=== PATIENT | female | born 1985 | race Caucasian/White ===

== ENCOUNTER → 2016-10-12 | Outpatient (CLI) | payer OTHER ==
[~2016-10-12] MED LIST: PROTONIX40 MG PO; VOLTAREN EC 7575 MG PO; ZANTAC150 MG PO
== END ==
DX: M25.511 Pain in right shoulder (principal); S16.1XXA Strain of muscle, fascia and tendon at neck level, initial encounter
CPT/HCPCS: 72050; 73030

== ENCOUNTER 2016-11-22 16:48 | Emergency (ER) | payer BC | END 2016-11-22 18:34 | disposition home or self-care (01) | LOC: ER1 16:48 | DX: J02.0 Streptococcal pharyngitis (principal); K21.9 Gastro-esophageal reflux disease without esophagitis; F41.9 Anxiety disorder, unspecified; Z79.899 Other long term (current) drug therapy | CPT/HCPCS: 87081; 87880; 99283 ==